=== PATIENT | male | born 1950 | race Caucasian/White ===

== ENCOUNTER → 2017-07-21 | Outpatient (CLI) | payer MEDICARE ==
[2016-03-12 15:00] VITALS: BP 129/55
[~2017-07-21] MED LIST: AMLO10TA2 PO; ASPI-482 PO; ATORVASTATIN CA80 MG PO; CARV12.52 PO; CHOL2000 PO; CYAN10005 PO; DOCU-109 PO; FISH1CAP PO; FURO40TA4 PO; GADOBUTROL 10 MMOL/10 ML VIAL IV ONE; HYDR25TA9 PO; Hydrocodone/Acetaminophen PO; LOSA100T6 PO; MELO7.5T29 PO; METH750T2 PO; METO25TA4 PO; OMEG300C PO; OMEG500C PO; OMEP20CA9 PO; OXYC1TAB7 PO; POTA99TA PO; SPIR25TA3 PO
--- NOTE | 2017-07-21 11:59 | RAD ---
MRI Cervical Spine with and without contrast History: Neck pain after seizure, history of fusion Technique: Multiplanar, multi sequential pre and postcontrast MR imaging was performed of the cervical spine. Contrast: 10 cc Gadavist Comparison: None Findings: There is some motion degradation. There is osseous interbody fusion at C5-6. There is anterior cervical fusion hardware C6-C7 at which there is incorporation of interbody graft and at least partial interbody fusion. There are also posterior lateral mass screws at C4, C5, and C6 attached to vertical rods. Exam does not accurately evaluate integrity of hardware. There is mild reversal of the lordotic curvature centered about C5. There is very minimal grade 1 anterior spondylolisthesis at C4-5. Cervical vertebral body stature is adequate. Cervical cord caliber is within normal limits without convincing focal signal abnormality allowing for motion artifact. There is mild disc desiccation such as C3-4 and C4-5 although the intervertebral disc spaces overall maintained at these levels. There is posterior annular tear C3-4. There is no significant abnormality of the cervical medullary junction. MRI can be insensitive for detection of noncompression type fractures if this is of clinical concern. There is likely mucus retention cyst of the right maxillary sinus up to 2 cm, small 1 cm focus on the left inferiorly with slightly complex features. C2-C3: There is fairly severe right facet degenerative change, to a lesser degree on the left. Spinal canal and neural foramina are adequate. C3-C4: There is severe facet degenerative change bilaterally. There is uncovertebral degenerative change greater on the right. There is very minimal disc osteophyte complex. There is buckling of the ligamentum flavum. Central canal is borderline 10 mm. There is fairly severe neural foramina compromise bilaterally. C4-C5: There is severe facet degenerative change. There has been posterior decompression. Spinal canal is adequate. There is minimal left uncovertebral degenerative change. There is fairly severe narrowing of the left neural foramen, probable moderate narrowing on the right. C5-C6: There has been posterior decompression. Spinal canal and neural foramina are adequate. C6-C7: Spinal canal and neural foramina are adequate. C7-T1: Neural foramina and spinal canal are adequate. Impression: 1. There is no significant cervical spinal stenosis. There is osseous interbody fusion at C5-C6, also anterior cervical fusion hardware C6-7 at which there is probable at least partial interbody fusion. There is also posterior fusion hardware C4-C6, posterior decompression at C4-5 and C5-6. 2. There is severe fairly severe neural foramina compromise bilaterally at C3-4, also left greater than right at C4-5. Facet hypertrophic change contributes to neural foramina compromise. Electronically signed by: Allen Winkler MD (07/21/2017 11:56 AM) [facility]
== END | disposition home or self-care (01) ==
LOC: MRI 09:39
PROVIDERS: ATTEND Neurological Surgery
DX: M54.12 Radiculopathy, cervical region (principal); M25.78 Osteophyte, vertebrae; R56.9 Unspecified convulsions; Z98.1 Arthrodesis status
CPT/HCPCS: 72156; A9585

== ENCOUNTER → 2018-10-06 | Outpatient (CLI) | payer MEDICARE ==
[2016-03-12 15:00] VITALS: BP 129/55
[~2018-10-06] MED LIST changes: +ALBU2.5V8 INH; +AMIO200T4 PO; -AMLO10TA2 PO; +AMLO10TA8 PO; +AMLO5TAB10 PO; +CARV12.511 PO; -CARV12.52 PO; +CRESTOR40 MG PO; +FURO20TA3 PO; -GADOBUTROL 10 MMOL/10 ML VIAL IV ONE; +HYDR-2145 PO; -HYDR25TA9 PO; +IBRU140C PO; +LOSA100T14 PO; -LOSA100T6 PO; +MULT1TAB52 PO; +OMEP20CA10 PO; -OMEP20CA9 PO; +PANT20TA2 PO; -SPIR25TA3 PO; +SPIR25TA5 PO; +TIOT18CA IH; +VALA1000 PO; +iron
--- NOTE | 2018-10-07 03:30 | PAIN ---
DATE OF SERVICE: 10/06/2018 INITIAL CONSULTATION FOR PAIN CLINIC CHIEF COMPLAINT: Low back and right lower extremity pain. HISTORY OF PRESENT ILLNESS: This is a 68-year-old male who presents with history of pain in the low back and right leg for many years status post multiple back surgeries with pain persistent. The patient has recently seen his neurosurgeon who is not recommending any further surgery. The patient has had instrumentation multiple times in the lumbar spine with fusion once with removal on one side secondary to infection and replacement of the hardware as well as interbody cages, still with significant pain in low back, right lower extremity, mostly in the posterior gluteus, posterior thigh, and posterior calf. The patient reports this has been going on now for about a year, most recently present for many years prior to this. The patient reports it is worse with walking, standing, change in positions, awakens him from sleep at night at least 3-4 times, does not affect his bowel or bladder control, but does affect his ability to walk fairly significantly. He is using a cane in his left hand, which he has with him today as well. The patient describes the pain as constant, aching, dull, shooting and radiating into the right leg with numbness, worse with activity, standing, walking, changing positions, again better with sitting for a temporary period, but after about 15-20 minutes, the pain begins to return, again awakens him from sleep with lying down. The patient did have recent MRI scan of the lumbar spine showing moderate lumbar spondylosis; paracentral focal disk herniation at T12-L1; mild right paracentral disk protrusion L1-L2; multilevel neural foraminal narrowing, most severe in the right L5-S1; postoperative changes in the spine similar to previous exam with disk space narrowing at L4-L5 with mild broad posterior annular disk bulging; L5-S1 showing degenerative changes, posterior annular disk bulging as well greater on the right than the left and severe right neural foraminal narrowing on the left. The patient rates the disability rating from 0-10, 10 being the worst, is a 6-7 with family and home responsibilities; 7-8 with recreation and occupation; 5-6 with social activity; 4-5 with sexual behavior, self-care and life support activities. The patient reports no overt loss of motor function, but significant fatigability of the lower extremities, especially on the right with any ambulation, standing and weightbearing. PAST MEDICAL HISTORY: Significant for shortness of breath, hypertension, arthritis, chronic leukemia. PREVIOUS SURGERY: Include left total knee replacement, right total knee replacement, lumbar surgeries multiple times with fusion and instrumentation in and out, 3 neck surgeries and fusion, sinus surgery, carpal tunnel repair on the right, shoulder rotator cuff repair on the left, knee scope x 2 and previous angioplasty. CURRENT MEDICATIONS: Include acyclovir, Spiriva, Crestor, Protonix, amlodipine, Lasix, ProAir inhaler, amiodarone, Imbruvica, iron, multivitamins, spironolactone, carvedilol, losartan, vitamin D and fish oil. ALLERGIES: THE PATIENT IS ALLERGIC TO PAPER TAPE. No medical allergies. No medicine allergies. FAMILY HISTORY: Significant for cancer, diabetes, coronary artery disease, hypertension. SOCIAL HISTORY: The patient is , does not smoke, does drink about 2 alcoholic drinks a day on average. Does not use any illegal, illicit or recreational drugs. Lives locally in [place], [place]. Reports that he is currently on disability secondary to his current pain issue. REVIEW OF SYSTEMS: The patient's review of systems is positive for those items mentioned in history of present illness. All systems reviewed and otherwise negative. It is complete, full and well documented on the patient's chart. PHYSICAL EXAMINATION: GENERAL: The patient's blood pressure is 146/66, pulse 81, and respirations 18, temperature is 97.7 degrees Fahrenheit, height is 6 feet 9 inches, weight is 258 pounds. GENERAL: The patient is awake, alert, oriented, appropriate, very pleasant demeanor. The patient is accompanied by his spouse. HEENT: Shows normocephalic, atraumatic. Extraocular movements are intact and symmetrical. Oral cavity: Mucous membranes moist and pink. Dentition is intact. The patient has full calzada and moustache. NECK: Shows anterior throat supple without palpable lymphadenopathy noted. Swallow reflex is symmetrical. CHEST: Shows normal on inspection. Breath sounds are clear to auscultation bilaterally. HEART: Shows S1, S2 clear. No murmurs auscultated. ABDOMEN: Soft, nontender, nondistended. No palpable organomegaly is noted. No rebound or guarding demonstrated. BACK: Shows spine grossly in the midline. Normal appearing thoracic kyphosis. Some significant flattening of lumbar lordotic curvature, has well-healed surgical scarring, which is fairly extensive in the lumbar distribution. Lumbar paraspinous muscle shows grossly symmetrical on inspection. With palpation shows some moderate tenderness bilaterally, but only diffusely as well without significant radiation. The patient shows limited rotational motion not secondary to pain, but about 10 degrees right and left as well as limited extension, but full forward flexion about 40 degrees without significant increase in pain. No tenderness over the sacrum or sacroiliac regions over the spinous processes. EXTREMITIES: The patient's lower extremities show deep tendon reflexes at 1+ in the patellar and tendo calcaneus tendons are equal. Motor exam is approximately 4 on a scale of 5, but symmetrical with dorsiflexion, extension, quadriceps and hamstring flexion. Peripheral pulses are 1+ posterior tibia. No peripheral edema is noted. The patient's straight leg raise is noted to be negative bilaterally as is Gaenslen's and Kwabena's maneuvers bilaterally. The patient is able to stand. It is difficult trying to stand on his toes as he does lose balance quickly. Walks with a significant antalgic gait, appears to favor significantly with the right lower extremity, again cane use in his right hand. SKIN: Shows warm and dry, good turgor. No edema. No sores, rashes or bruising. IMPRESSION: This is a 68-year-old male with: 1. Long history of low back pain, multiple surgeries, instrumentation, fusion, interbody fusion with persistent radiculopathy in the right lower extremity in L5-S1 dermatomal distribution. 2. Recent evaluation by Neurosurgery without any surgical indications. 3. Coronary artery disease. 4. Hypertension. 5. Arthritis. 6. Chronic leukemia. PLAN: Options were discussed with the patient including conservative medical management, physical therapy, interventional techniques. He would like to pursue more interventional techniques. We discussed a spinal cord stimulator with the patient as he may be a very good candidate for this as recommended by his neurosurgeon as well to consider as there are no surgical indications at this time. The patient would like to consider this. We discussed the procedure in detail as well as the stimulator in detail. The patient was given some information to do some research on his own as well, which he requested and we will make the arrangements to have psychological evaluation as well as preauthorization for spinal cord stimulator trial performed and potential permanent implantation if that is successful. The patient understands and agrees and would like to proceed with this. We will make the arrangements to have him return for spinal cord stimulator temporary lead placement at that time. KIA NEWMAN MD DR: PAMELA/layne JOB#: [id number] / [id number]
== END | disposition home or self-care (01) ==
LOC: PNCL 08:37
PROVIDERS: ATTEND Anesthesiology
DX: M54.17 Radiculopathy, lumbosacral region (principal); M79.604 Pain in right leg; M19.90 Unspecified osteoarthritis, unspecified site; I10 Essential (primary) hypertension; I25.10 Atherosclerotic heart disease of native coronary artery without angina pectoris; C95.10 Chronic leukemia of unspecified cell type not having achieved remission
CPT/HCPCS: G0463

== ENCOUNTER → 2018-10-28 | Outpatient (CLI) | payer MEDICARE ==
[2016-03-12 15:00] VITALS: BP 129/55
[~2018-10-28] MED LIST changes: +LIDOCAINE 1% PF 2 ML VIAL. ONE
--- NOTE | 2018-10-29 00:58 | PAIN ---
DATE OF SERVICE: 10/28/2018 DIAGNOSES: Lumbar radiculopathy with lumbar degenerative disk disease and post-lumbar laminectomy syndrome. HISTORY OF PRESENT ILLNESS: The patient is a 68-year-old male, who returns to followup after psychiatric evaluation and preauthorization for spinal cord stimulator temporary lead placement. The patient had procedure clearance and would like to proceed. The patient still have pain in low back into the right greater than left lower extremity, posterior gluteus, posterior thigh, posterior calf as well as across the low back bilaterally. The patient reports his pain is a 9 on a scale of 10 at its worst, 6 on average, 4 at its least and is a 6 today. The patient reports it is tingling, burning, sharp, shooting, radiating, becoming more constant, worse with standing, walking, changing positions and better with lying down or sitting. The patient reports he generally sleeps fairly well, does not awaken him from sleep most times, but reports no new motor or sensory deficits, no new bowel or bladder incontinence or other complaints. PHYSICAL EXAMINATION: VITAL SIGNS: The patient's blood pressure 167/77, pulse 53, respirations 16, temperature is 97.8 degrees Fahrenheit, height is 6 feet 1 inch, and weight is 260 pounds. GENERAL: The patient is awake, alert, oriented, appropriate, very pleasant demeanor. HEENT: Shows normocephalic, atraumatic. Extraocular movements are intact and symmetrical. Oral cavity: Mucous membranes are moist and pink. Dentition is intact. NECK: Shows anterior throat supple without palpable lymphadenopathy noted. Swallow reflex is symmetrical. CHEST: Shows normal on inspection. Breath sounds are clear to auscultation bilaterally. HEART: Shows S1 and S2 clear. No murmurs auscultated. ABDOMEN: Soft, nontender, nondistended. No palpable organomegaly is noted. No rebound or guarding demonstrated. MUSCULOSKELETAL: Back shows spine grossly in the midline. Slight exaggerated thoracic kyphosis, some significant flattening of lumbar lordotic curvature. Lumbar paraspinous muscle shows symmetrical on inspection. Well-healed extensive surgical scars are noted bilaterally throughout the upper, lower and middle distribution of paraspinous musculature. Muscles are diffusely tender bilaterally with palpation upper, middle and lower distribution of the paraspinous muscles in the lumbar distribution without radiation, without specific trigger points and is very firm, very moderately tender bilaterally. The patient has good rotational motion of lumbar spine, both laterally as well as extension and flexion with some limitation with extension secondary to his previous surgeries, not secondary to pain, as these are not uncomfortable with rotational motion or flexion and extension. EXTREMITIES: Lower extremities show deep tendon reflexes at 1+ in the patellar and tendo calcaneus tendons. Motor exam is strong with 5/5 dorsiflexion, extension, quadriceps and hamstring flexion and intact. Peripheral pulses are 1+ posterior tibia. No peripheral edema is noted. Options were discussed with the patient. The patient's old chart was reviewed as was his current medication regimen updated. Current review of systems is updated today as well. We will proceed with the spinal cord stimulator temporary leads x 2, placement today with fluoroscopic guidance. Risks were again discussed including, but not limited to bleeding, infection, possibility of epidural hematoma, subsequent neurological compromise, dural puncture, headaches, spinal cord and/or nerve damage, exposure to fluoroscopy as well as poor results regarding pain control. The patient understands and wished to proceed. The patient will return to the clinic in approximately 1 week for followup and removal of temporary leads at that time. We will evaluate the patient's pain level over the next week and evaluate for permanent stimulator placement if appropriate. DIAGNOSIS: Lumbar radiculopathy with lumbar degenerative disk disease, post-lumbar laminectomy syndrome. PROCEDURE: Bilateral spinal cord stimulator temporary lead placement x 2, under sterile prep and drape using local anesthetic under fluoroscopy both AP and lateral using 14-gauge Hustead styletted needles with preservative-free normal saline, loss of resistance technique with negative aspiration at each level with insertion site at T12-L1 intervertebral level with good ease and thread of the stimulator leads x 2 without significant resistance, with the superior lead of the right most posterior stimulator lead at the superior endplate of T8 and the left most at the superior endplate of T9 is confirmed with lateral fluoroscopy to be in the posterior epidural space. [place] were withdrawn, stylets withdrawn. The leads were sutured in place and a sterile bandage was applied. CONDITION AT DISCHARGE: Stable. The patient tolerated the procedure well, had no complications in the immediate postoperative period. Was educated with [facility] stimulator policy services representative for use of the stimulator itself and we will follow up over the next week intermittently as well. KIA NEWMAN MD DR: Dione JOB#: [id number] / [id number]
== END | disposition home or self-care (01) ==
LOC: PNCL 12:24
PROVIDERS: ATTEND Anesthesiology
DX: M51.16 Intervertebral disc disorders with radiculopathy, lumbar region (principal); M96.1 Postlaminectomy syndrome, not elsewhere classified; Z88.8 Allergy status to other drugs, medicaments and biological substances; Z91.048 Other nonmedicinal substance allergy status
CPT/HCPCS: 63650; C1897

== ENCOUNTER → 2018-11-04 | Outpatient (CLI) | payer MEDICARE ==
[2016-03-12 15:00] VITALS: BP 129/55
[~2018-11-04] MED LIST changes: -LIDOCAINE 1% PF 2 ML VIAL. ONE
--- NOTE | 2018-11-05 01:18 | PAIN ---
DATE OF SERVICE: 11/04/2018 DIAGNOSIS: Lumbar radiculopathy with lumbar degenerative disk disease and lumbar post-laminectomy syndrome. HISTORY OF PRESENT ILLNESS: The patient is a 68-year-old male who returns for followup status post spinal cord stimulator temporary lead placement x 2, one week ago. The patient returns today reporting about 70+ percent improvement in the pain with the second program that we tried with the stimulator. The patient reports he did very well, has been sleeping much better at night, increased his activity, greater distance walking, doing activities at home, traveling with greater ease and comfort and especially sleeping at night, has been a big change form as he is much more comfortable. The patient reports he is very pleased with the stimulator and the progress he has made. Reports his pain across the low back is still aching and dull, but only very minimal amount. The patient reports it is 4 on a scale of 10 at its worst over the past week, 2 on an average, 0 at its least and is 2 today. The patient reports no new motor or sensory deficits, no new changes. No new bowel or bladder incontinence. PHYSICAL EXAMINATION: VITAL SIGNS: The patient's blood pressure is 161/66, pulse 51, respirations are 18, temperature is 97.9 degrees Fahrenheit, height is 6 feet 1 inch, weighs 261 pounds. GENERAL: The patient is awake, alert, oriented, appropriate, very pleasant demeanor. HEENT: Head shows normocephalic, atraumatic. Extraocular movements are intact and symmetrical. Oral cavity: Mucous membranes moist and pink. NECK: Shows anterior throat supple. CHEST: Shows breath sounds clear to auscultation bilaterally. HEART: Shows S1, S2 clear. ABDOMEN: Soft, nontender, nondistended. BACK: Shows spine grossly in the midline. The patient's bandages were taken down and under sterile prep and drape, the spinal cord stimulator leads were removed. Sutures were cut. Stimulator leads were removed x 2 with tips intact. Site clean and dry, no erythema, no redness, no drainage, no tenderness with palpation. The patient has full rotational motion of lumbar spine without difficulty. EXTREMITIES: Lower extremities show deep tendon reflexes 1+ in the patellar and tendo calcaneus tendons. Motor exam is strong with 5/5 dorsiflexion, extension, quadriceps and hamstring flexion and symmetrical. Peripheral pulses are 1+ posterior tibial. No peripheral edema is noted bilaterally. Options were discussed with the patient. The patient's old chart was reviewed as was his current medication regimen updated. Current review of systems updated today as well. We will make arrangements for permanent stimulator placement. The patient will follow up on as scheduled basis at this time. KIA NEWMAN MD DR: PAMELA/layne JOB#: [id number] / [id number]
== END | disposition home or self-care (01) ==
LOC: PNCL 10:41
PROVIDERS: ATTEND Anesthesiology
DX: M51.16 Intervertebral disc disorders with radiculopathy, lumbar region (principal); M96.1 Postlaminectomy syndrome, not elsewhere classified
CPT/HCPCS: G0463

== ENCOUNTER → 2018-12-23 | Outpatient (CLI) | payer MEDICARE ==
[2016-03-12 15:00] VITALS: BP 129/55
--- NOTE | 2018-12-23 23:22 | PAIN ---
DATE OF SERVICE: 12/23/2018 PROGRESS NOTE FOR PAIN CLINIC DIAGNOSES: Lumbar radiculopathy with lumbar degenerative disk disease and lumbar post-laminectomy syndrome. HISTORY OF PRESENT ILLNESS: The patient is a 68-year-old male who returns for followup status post spinal cord stimulator placement and permanent implant on 12/03/2018. The patient reports he is doing very well, with some over-stimulation with the first program, but it has been reprogrammed today and he met today with our [employer] cash posting representative to do some re-tuning. The patient reports already it feels a little bit better than it did yesterday. Even the patient reports the pain in the low back and bilateral lower extremity was previously rated at 8 on a scale of 10 and that was the worst for the past week, 4 on average and a 4 at its least and it is a 4 today. The patient reports it is aching and dull in the back and legs. The patient reports no motor or sensory deficits, no new bowel or bladder incontinence or other complaints. It does not awaken him from sleep at night, doing better when he is off his feet. The patient reports no new motor or sensory deficits or other complaints. PHYSICAL EXAMINATION: VITAL SIGNS: The patient's blood pressure is 155/82, pulse 85, respirations 16 and temperature 97.8 degrees Fahrenheit. Weight is 260 pounds. GENERAL: The patient is awake, alert, oriented, appropriate, very pleasant demeanor. The patient is accompanied by his spouse. HEENT EXAMINATION: Shows normocephalic, atraumatic. Extraocular movements are intact and symmetrical. Oral cavity, his mucous membranes are moist and pink. Dentition is intact. NECK: Shows anterior throat supple. CHEST: Shows breath sounds clear to auscultation bilaterally. HEART: Shows S1, S2 clear. BACK: The patient's back shows spine grossly in the midline. Well-healing surgical scars are noted. There is easily palpable spinal cord stimulator generator to the left of midline, in the lumbar distribution. Again, well-healed surgical scars. No erythema, no drainage. No signs of infection and no specific tenderness over the areas of the incision. EXTREMITIES: The patient's lower extremities show deep tendon reflexes 1+ in the patellar and tendo calcaneus tendons are equal. Motor exam is strong with 5/5 dorsiflexion and extension and equal. Peripheral pulses are 1+ posterior tibial. No peripheral edema is noted bilaterally. Options were discussed with the patient. The patient's old chart was reviewed as was his current medication regimen updated. Current review of systems updated today as well and we will have him follow up at this time on as-needed basis. The patient was encouraged to be careful with stretching, strengthening and bending exercises with the low back and rotational motion of lumbar spine, especially flexion and extension for a total of 6 weeks have passed from the surgery date. The patient also was wearing a back brace that was putting some pressure on the generator and he will use is only intermittently as necessary in the future. The patient will follow up this time on an as-needed basis. KIA NEWMAN MD DR: PAMELA/nts JOB#: [id number] / [id number]
== END | disposition home or self-care (01) ==
LOC: PNCL 09:48
PROVIDERS: ATTEND Anesthesiology
DX: M51.16 Intervertebral disc disorders with radiculopathy, lumbar region (principal); M96.1 Postlaminectomy syndrome, not elsewhere classified
CPT/HCPCS: G0463

== ENCOUNTER → 2019-08-09 | Outpatient (CLI) | payer MEDICARE ==
[2016-03-12 15:00] VITALS: BP 129/55
[~2019-08-09] MED LIST changes: +ASPI81TA50 PO; +CYAN-25 PO; -CYAN10005 PO; +GABA300C18 PO; -OMEP20CA10 PO; +OMEP20CA16 PO
--- NOTE | 2019-08-09 12:50 | PAIN ---
DATE OF SERVICE: PROGRESS NOTE FOR PAIN CLINIC DIAGNOSES: Lumbar radiculopathy with lumbar degenerative disk disease and lumbar post-laminectomy syndrome. HISTORY OF PRESENT ILLNESS: The patient is a 69-year-old male who returns for followup status post spinal cord stimulator placement, permanent placement 12/03/2018. The patient reported about 95% improvement after trial and has had reprogramming done once since the implant. The patient returns today reporting still significant pain, increasing now in the low back and right lower extremity, posterior gluteus, posterior thigh across the low back. The patient rates it 9 on a scale of 10 at its worst in the past week, 4 on average, 4 at its least and is a 4 today. The patient reports is tingling, sharp, aching and dull and is meeting with his spinal cord stimulator medical office representative from [employer] later this morning as well. The patient reports sometimes it comes and goes, but for about a month now is beginning more noticeable and would like to have it reprogrammed. The patient reports it is sharp and tingling in the low back. The patient reports no new motor or sensory deficits, no new bowel or bladder incontinence or other complaints. It does not awake him from sleep at night, mostly noticeable with walking, standing, better with sitting or lying down. The patient reports while he is sitting here today his pain is basically 0. PHYSICAL EXAMINATION: VITAL SIGNS: The patient's blood pressure 149/76, pulse 60, respirations 18, temperature 97.6 degrees Fahrenheit, height is 6 feet 1 inch, weight is 263 pounds. GENERAL: The patient is awake, alert, oriented, appropriate, very pleasant demeanor. HEENT: Head is normocephalic, atraumatic. Extraocular movements are intact and symmetrical. Oral cavity: Mucous membranes moist and pink. Dentition is intact. NECK: Shows anterior throat supple without palpable lymphadenopathy noted. Swallow reflex symmetrical. CHEST: Shows normal on inspection. Breath sounds clear to auscultation bilaterally. HEART: Shows S1, S2 clear. No murmurs auscultated. ABDOMEN: Soft, nontender, nondistended. No palpable organomegaly is noted. No rebound or guarding demonstrated. BACK: Shows spine grossly in the midline. Normal appearing thoracic kyphosis and minor flattening of lumbar lordotic curvature with well-healed surgical scarring noted. Lumbar paraspinous muscle shows symmetrical on inspection, with palpation shows only very mild tenderness throughout the upper, middle and lower distribution of the paraspinous muscles. EXTREMITIES: Lower extremities show deep tendon reflexes 1+ in the patellar and tendo calcaneus tendons. Motor exam is 5/5 with dorsiflexion, extension, quadriceps and hamstring flexion and symmetrical. Options were discussed with the patient. The patient's old chart was reviewed as his current medication regimen updated. Current review of systems updated today as well. We will have the reprogramming performed this morning with a spinal cord stimulator medical office representative and once this is completed, the patient returns on as needed basis at this time. KIA NEWMAN MD DR: PAMELA/layne JOB#: [id number] / [id number]
== END | disposition home or self-care (01) ==
LOC: PNCL 08:57
PROVIDERS: ATTEND Anesthesiology
DX: M51.16 Intervertebral disc disorders with radiculopathy, lumbar region (principal); M96.1 Postlaminectomy syndrome, not elsewhere classified
CPT/HCPCS: G0463

== ENCOUNTER → 2019-12-21 | Outpatient (CLI) | payer MEDICARE ==
[2016-03-12 15:00] VITALS: BP 129/55
[~2019-12-21] MED LIST changes: -VALA1000 PO; +VALA10008 PO
--- NOTE | 2019-12-21 14:00 | PAIN ---
DATE OF SERVICE: 12/21/2019 PROGRESS NOTE FOR PAIN CLINIC DIAGNOSES: Lumbar radiculopathy with lumbar degenerative disk disease and lumbar post-laminectomy syndrome. HISTORY OF PRESENT ILLNESS: The patient is a 69-year-old male who returns for followup status post spinal cord stimulator implant at about 1 year ago, on 12/03/2018. The patient reports he did very well until the last few months, the pain has been returning about 3 months now in the low back and right lower extremity but very only very gradually and now is becoming much more noticeable over the past 3-4 weeks. The patient reports his pain is 8-9 on a scale of 10 at its worst, 7-8 on average and 4-5 at its least. The patient reports it is tingling and sharp, began to notice it more in the right leg, posterior gluteus and thigh as it was prior to his surgeries and prior to his spinal cord stimulator placement. The patient has been keeping the stimulator charged without difficulty and our [employer] representative is here today to check it as well. The patient reports otherwise doing fairly well. No new bowel or bladder incontinence, no new motor or sensory deficits, just some pain reported with low back and the right leg, awakening him from sleep about every 6 hours but most nights it does not. The patient reports it is worse with walking, standing, exercise activity or getting up from a seated position, putting all his weight on his right leg. PHYSICAL EXAMINATION: VITAL SIGNS: The patient's blood pressure 172/67, pulse 51, respirations 18, temperature 98.1 degrees Fahrenheit, height 6 feet 1 inch, weight is 258 pounds. GENERAL: The patient is awake, alert, oriented, appropriate, very pleasant demeanor. HEENT: Shows normocephalic, atraumatic. Extraocular movements are intact and symmetrical. Oral cavity: Mucous membranes moist and pink. The patient has full calzada and moustache. NECK: Shows anterior throat supple without palpable lymphadenopathy noted. Swallow reflex symmetrical. CHEST: Shows normal on inspection. Breath sounds are clear without rales, rhonchi or wheezes bilaterally. HEART: Shows S1, S2 clear. No murmurs auscultated. ABDOMEN: Soft, nontender, nondistended. BACK: Shows spine grossly in the midline, slight flattening of lumbar lordotic curvature with well-healed surgical scarring noted as well as easily palpable spinal cord stimulator generator on the left to midline in the mid back as well with well-healed surgical scar and nontender with palpation. EXTREMITIES: Lower extremities show deep tendon reflexes 1+ in the patellar and tendo calcaneus tendons. Motor exam is 5/5 with dorsiflexion, extension, quadriceps and hamstring flexion and symmetrical. Options were discussed with the patient. The patient's old chart was reviewed as his current medication regimen updated. Current review of systems updated today as well and we will have him reprogrammed today with our [facility] [employer] representative. Also, we will follow up within 1 week with progress report after the program changes are made today as well. Otherwise, follow up as necessary. KIA NEWMAN MD DR: PAMELA/nts JOB#: [id number] / [id number]
== END | disposition home or self-care (01) ==
LOC: PNCL 12:50
PROVIDERS: ATTEND Anesthesiology
DX: M51.16 Intervertebral disc disorders with radiculopathy, lumbar region (principal); M96.1 Postlaminectomy syndrome, not elsewhere classified
CPT/HCPCS: G0463

== ENCOUNTER → 2020-01-27 | Outpatient (CLI) | payer MEDICARE ==
[2016-03-12 15:00] VITALS: BP 129/55
[~2020-01-27] MED LIST changes: +MULT-445 PO; -MULT1TAB52 PO
--- NOTE | 2020-01-27 12:31 | PAIN ---
DATE OF SERVICE: 01/27/2020 PROGRESS NOTE FOR PAIN CLINIC DIAGNOSES: Lumbar radiculopathy with lumbar degenerative disk disease and lumbar post-laminectomy syndrome. HISTORY OF PRESENT ILLNESS: The patient is a 69-year-old male who returns for followup status post spinal cord stimulator placement, which was 12/03/2018. The patient reported about 95% improvement with his trial and has been doing very well until the last few weeks. The pain has been returning and with weakness in the right leg compared to the left with increased pain. The patient has a stimulator reprogrammed once, which helped, but not with the weakness. The patient reports it is becoming more painful now, rated as a 9 on a scale of 10 at its worst in the past week, 7 on average, 5 at its least and is a 9 today. The patient reports it is aching, sharp, tingling, right leg, posterior gluteus, posterior thigh and across the low back as well. The patient has been charging the stimulator without difficulty and has had no problems with the mechanisms itself, but the pain is increasing with some weakness in the right leg. We discussed this with his spouse as well as with our [facility] spinal cord stimulator hospital insurance representative. We will have the stimulation held for just under 1 week to see if this will make any difference in the perception of the pain or the weakness of the right leg. If not significantly improved or getting worse, we will order MRI scan of the lumbar spine to assess for any type of compression that may cause the weakness in the pain. Otherwise, the patient reports he has been doing fairly well, still awakens him from sleep at night about every 5 hours. No new motor or sensory deficits, no bowel or bladder incontinence or other complaints. PHYSICAL EXAMINATION: VITAL SIGNS: The patient's blood pressure 157/63, pulse 55, respirations 18, temperature 98.2 degrees Fahrenheit, height 6 feet 1 inch, weight is 261 pounds. GENERAL: The patient is awake, alert, oriented, appropriate, very pleasant demeanor. HEENT: Head shows normocephalic, atraumatic. Extraocular movements are intact and symmetrical. Oral cavity: Mucous membranes moist and pink. Dentition is intact. NECK: Shows anterior throat supple without palpable lymphadenopathy noted. Swallow reflex symmetrical. CHEST: Shows normal on inspection. Breath sounds are clear bilaterally. HEART: Shows S1, S2 clear. ABDOMEN: Soft, nontender, nondistended. BACK: Shows spine grossly in the midline with some flattening of lumbar lordotic curvature. Well-healed surgical scar is noted in the lumbar distribution as well as easily palpable spinal cord stimulator generator in the left paramedian distribution of the lower lumbar distribution, which is nontender again with well-healed surgical scars over the stimulator generator as well. The patient has good rotational motion of lumbar spine, both laterally as well as extension and flexion without difficulty. EXTREMITIES: Lower extremities show deep tendon reflexes at 1+ in the patellar and tendo calcaneus tendons. Motor exam is strong with 5/5 dorsiflexion, extension on the left and 4/5 on the right with dorsiflexion, extension, quadriceps and hamstring flexion about 3 on a scale of 5 on the right secondary to pain, 5/5 on the left. Peripheral pulses are 1+. No peripheral edema is noted. PLAN: Options were discussed with the patient. The patient's old chart was reviewed as his current medication regimen updated. Current review of systems updated today as well. We will hold the patient's stimulation for approximately 1 week. Again if the patient's pain is worsening or increased weakness in the right leg, he will notify the office prior to 1 week and we will [facility] and go from there. The patient understands and agrees and will follow up as scheduled. KIA NEWMAN MD DR: PAMELA/layne JOB#: [id number] / [id number]
== END | disposition home or self-care (01) ==
LOC: PNCL 11:04
PROVIDERS: ATTEND Anesthesiology
DX: M51.16 Intervertebral disc disorders with radiculopathy, lumbar region (principal); M96.1 Postlaminectomy syndrome, not elsewhere classified; Z79.82 Long term (current) use of aspirin; Z79.899 Other long term (current) drug therapy; Z88.8 Allergy status to other drugs, medicaments and biological substances; Z87.891 Personal history of nicotine dependence
CPT/HCPCS: G0463

== ENCOUNTER → 2020-02-29 | Outpatient (CLI) | payer MEDICARE ==
[2016-03-12 15:00] VITALS: BP 129/55
--- NOTE | 2020-02-29 18:34 | PAIN ---
DATE OF SERVICE: 02/29/2020 PROGRESS NOTE FOR PAIN CLINIC DIAGNOSES: Lumbar radiculopathy with lumbar degenerative disk disease and lumbar post-laminectomy syndrome. HISTORY OF PRESENT ILLNESS: The patient is a 69-year-old male who returns for followup status post recent evaluation and spinal cord stimulator readjustment last month. We had turned it off for about a week. The patient reports that he could not tell a whole lot of difference and now with the stimulator is turned back on. It is actually causing some decreased pain in his low back and his right leg; however, he is having significant pain in the right leg with ambulation, walking, standing, especially getting up from a seated position. When he seated, he says he feels pretty good. It does not awaken him from sleep at night, better with lying down or sleeping. The patient reports that when he is walking, now the pain is becoming more significant radiating into the posterior gluteus, posterior thigh on the right side. The patient reports it is a 9 on a scale of 10 at its worst, 5 on average and 4 at its least and is a 5 today. The patient reports it is aching and sharp, tingling, burning in the right leg, again worse with walking activity. The patient reports no new changes, no bowel or bladder incontinence. PHYSICAL EXAMINATION: VITAL SIGNS: The patient's blood pressure 159/74, pulse 54, respirations 20, temperature is 98.0 degrees Fahrenheit and weight is 257 pounds. GENERAL: The patient is awake, alert, oriented, appropriate, very pleasant demeanor. HEENT: Head shows normocephalic, atraumatic. Extraocular movements are intact and symmetrical. The patient shows full calzada and moustache. Oral cavity: Mucous membranes moist and pink. Dentition is intact. NECK: Shows anterior throat supple without palpable lymphadenopathy noted. Swallow reflex symmetrical. CHEST: Shows normal on inspection. Breath sounds are clear without rales, rhonchi or wheezes auscultated. HEART: Shows S1, S2 clear. No murmurs auscultated. ABDOMEN: Soft, nontender, nondistended. BACK: Shows spine grossly in the midline. Slight exaggeration of thoracic kyphosis, some flattening of lumbar lordotic curvature with well-healed surgical scar noted. Easily palpable spinal cord stimulator generator is noted as well just left of the midline in the lumbar paraspinous musculature. The patient shows good rotational motion of lumbar spine, both laterally as well as extension and flexion without significant difficulty or increased pain reported. EXTREMITIES: The patient's lower extremities show deep tendon reflexes at 1+ in the patellar and tendo-calcaneus tendons. Motor exam is 5/5 on the left and 4/5 on the right with dorsiflexion, extension, quadriceps and hamstring flexion is 3/5 on the right and 5/5 on the left. Peripheral pulses are 1+ posterior tibia. No peripheral edema is noted. PLAN: Options were discussed with the patient. The patient's old chart was reviewed as his current medication regimen updated. Current review of systems updated today as well. We [facility] as he has therapist to evaluate the right-sided lumbar radiculopathy. The patient ____ with his primary care physician in 2 days and we will request that this be [facility] to assess the radiculopathy, but he is experiencing which is overriding the capability of the stimulator at this time to evaluate possible increased change or disk herniation, etc. in the low back and effecting the right lower extremity. In the meantime, the patient's spinal cord stimulator was adjusted today with [employer] merchand[employer] representative and different programs available. The patient will try this as well. In the meantime, we will wait for MRI scan results and proceed at that point. KIA NEWMAN MD DR: PAMELA/layne JOB#: [id number] / [id number]
== END | disposition home or self-care (01) ==
LOC: PNCL 13:47
PROVIDERS: ATTEND Anesthesiology
DX: M51.16 Intervertebral disc disorders with radiculopathy, lumbar region (principal); M96.1 Postlaminectomy syndrome, not elsewhere classified; Z88.8 Allergy status to other drugs, medicaments and biological substances; Z79.899 Other long term (current) drug therapy
CPT/HCPCS: G0463

== ENCOUNTER → 2020-05-02 | Outpatient (CLI) | payer MEDICARE ==
[2016-03-12 15:00] VITALS: BP 129/55
--- NOTE | 2020-05-02 10:55 | PDOC ---
Progress Note - Pain Clinic Date of Service: DOS: DATE: 05/02/20 TIME: 10:50 Diagnosis: Dx: Lumbar radiculopathy with lumbar degenerative disc disease lumbar postlaminectomy syndrome History or Present Illness: HPI: 6-year-old male returns follow-up status post spinal cord stimulator placement and CT scan ordered for increased pain low back and right lower extremity February 29, 2020. Patient reports has been in the [place] hospital with some respiratory issues and was hospitalized for 16 days now discharged feeling better and the pain in his low back is actually improved as well as the radiation of the right lower extremity patient reports he has some pain in the right and left lower extremities now but is much more manageable patient rates is 8 on scale 10 is worse over the past week 6 on average 3 at its least is a 3 today patient ports aching sharp tingling shooting in the posterior gluteus posterior thigh more on the right than the left with activity but again is been at bedrest in the hospital recently and is been feeling much better after that. Patient does have spinal cord stimulator has not had it adjusted since he was hospitalized. Patient reports no loss of motor function no new bowel or bladder incontinence or other complaints we did have a CT scan performed which was done through the [place] showing multilevel neuroforaminal narrowing most severe at L5-S1 moderate on the left and severe on the right. Physical Exam: VS: Blood pressure 146/88 pulse 62 respiration 16 temperature 98.1 F weight is 236 pounds PE: PHYSICAL EXAMINATION: GENERAL: The patient is awake, alert, oriented, appropriate, very pleasant demeanor HEENT: Shows normocephalic, atraumatic. Extraocular movements are intact and symmetrical. Oral cavity: Mucous membranes moist and pink. Dentition is intact. NECK: Shows anterior throat supple without palpable lymphadenopathy noted. S wallow reflex symmetrical. CHEST: Shows normal on inspection. Breath sounds are clear bilaterally, distant but no rales rhonchi or wheezes auscultated. HEART: Shows S1, S2 clear. No murmurs auscultated. ABDOMEN: Soft, nontender, nondistended, obese. No palpable organomegaly is noted. No rebound or guarding demonstrated. BACK: Shows spine grossly in the midline. Normal-appearing cervical lordotic curvature. Easily palpable spinal cord stimulator generator noted with well- healed surgical scar. There is slightly increased thoracic kyphosis, some minor flattening of the lumbar lordotic curvature, with well-healed surgical scarring noted. Lumbar paraspinous muscles show symmetrical on inspection, on palpation shows some moderate tenderness diffusely throughout the upper, middle and lower distribution of the paraspinous muscles bilaterally, but without specific trigger points, without radiation of pain. The patient has good rotational motion of the lumbar spine, both laterally as well as extension and flexion without significant difficulty. No tenderness over the spinous processes, sacrum or sacroiliac regions. EXTREMITIES: Lower extremities show deep tendon reflexes 1+ in the patellar and tendo calcaneus tendons. Motor exam is 4 on a scale of 5 with right dorsiflexion, extension, quadriceps and hamstring flexion and 5/5 on the left. Peripheral pulses are 1+ posterior tibial. No peripheral edema is noted bilaterally. Lower extremities are warm and dry to touch, equal in color and appearance. SKIN: Shows warm and dry, good turgor. No edema. No sores, rashes or bruising throughout. Procedure: Procedure: Options were discussed with the patient. Patient will chart was reviewed his his current medication regimen updated current review of systems updated today as well. We will contact spinal cord stimulator customer support representative for readjustment of the stimulator system at this time. We did discuss possibility of lumbar epidural steroid injection however patient is against this as he is not had good success with these in the past. Medication Injected: Med Injected: None Condition at Discharge: Condition at Discharge: Condition at discharge is stable, patient will [facility] with [facility] customer support representative for adjustment of spinal cord stimulator system. KIA NEWMAN MD May 02, 2020 10:55
== END | disposition home or self-care (01) ==
LOC: PNCL 09:58
PROVIDERS: ATTEND Anesthesiology
DX: M51.16 Intervertebral disc disorders with radiculopathy, lumbar region (principal); M46.1 Sacroiliitis, not elsewhere classified; Z98.890 Other specified postprocedural states; Z79.899 Other long term (current) drug therapy; Z87.891 Personal history of nicotine dependence; Z79.82 Long term (current) use of aspirin; Z88.8 Allergy status to other drugs, medicaments and biological substances
CPT/HCPCS: G0463

== ENCOUNTER → 2020-07-13 | Outpatient (CLI) | payer MEDICARE ==
[2016-03-12 15:00] VITALS: BP 129/55
[~2020-07-13] MED LIST changes: -AMIO200T4 PO; +AMIO200T6 PO; +AMLO-186 PO; +AMLO-187 PO; -AMLO10TA8 PO; -AMLO5TAB10 PO
--- NOTE | 2020-07-13 12:04 | PDOC ---
Progress Note - Pain Clinic Date of Service: DOS: DATE: 07/13/20 TIME: 12:00 Diagnosis: Dx: Lumbar radiculopathy with lumbar degenerative disc disease lumbar postlaminectomy syndrome with spinal cord stimulation History or Present Illness: HPI: 6-year-old male returns follow-up status post spinal cord stimulator placement and presents for reprogramming today. Patient ports pain is increasing in his low back and into his right lower extremity posterior gluteus posterior thigh and calf and across the low back. Patient reports the stimulator has been working but now is not as effective as it had been. Patient rates his pain as a 9 on scale 10 is worse with the past week 6-7 on average and affords least is a 6 today. Reports no new motor or sensory deficits no new bowel or bladder incontinence but still significant pain increasing where none the stimulation has been covering it very well. Patient reports no new motor or sensory deficits no new bowel or bladder incontinence or other complaints. Patient reports it wakes him from sleep about every 4-6 hours on average especially when he is getting up out of bed in the morning is more noticeable in the low back and the right leg also some tingling and paresthesia pain in the left forefoot anteriorly. Physical Exam: VS: Blood pressure is 172/83 pulse 68 respirations 18 temperature 90.6 3 Fahrenheit height is 6 foot 1 inches weight is 242 pounds PE: PHYSICAL EXAMINATION: GENERAL: The patient is awake, alert, oriented, appropriate, very pleasant demeanor HEENT: Shows normocephalic, atraumatic. Extraocular movements are intact and symmetrical. NECK: Shows anterior throat supple without palpable lymphadenopathy noted. Swallow reflex symmetrical. CHEST: Shows normal on inspection. Breath sounds are clear bilaterally no rales or rhonchi. HEART: Shows S1, S2 clear. No murmurs auscultated. ABDOMEN: Soft, nontender, nondistended, obese. No palpable organomegaly is noted. No rebound or guarding demonstrated. BACK: Shows spine grossly in the midline. Normal-appearing cervical lordotic curvature. There is increased thoracic kyphosis, some flattening of the lumbar lordotic curvature. Lumbar paraspinous muscles show symmetrical on inspection, on palpation shows some moderate tenderness diffusely throughout the upper, middle and lower distribution of the paraspinous muscles, but without specific trigger points, without radiation of pain. The patient has good rotational motion of the lumbar spine, both laterally as well as extension and flexion without significant difficulty. No tenderness over the spinous processes, sacrum or sacroiliac regions. EXTREMITIES: Lower extremities show deep tendon reflexes 1+ in the patellar and tendo calcaneus tendons. Motor exam is 4 on a scale of 5 with right dorsiflexion, extension, quadriceps and hamstring flexion and 5/5 on the left. Peripheral pulses are 1+ posterior tibial. No peripheral edema is noted bilaterally. Lower extremities are warm and dry to touch, equal in color and appearance. SKIN: Shows warm and dry, good turgor. No edema. No sores, rashes or bruising throughout. Procedure: Procedure: Options were discussed with the patient. Patient will chart reviews his current medication regimen updated current review of systems updated today as well. We will go ahead with reprogramming with patient spinal cord stimulator today as [employer] sales representative is present patient will be given new programming and follow-up in approximately 4 weeks or sooner if necessary. Medication Injected: Med Injected: None Condition at Discharge: Condition at Discharge: Condition at discharge is stable. KIA NEWMAN MD Jul 13, 2020 12:04
== END | disposition home or self-care (01) ==
LOC: PNCL 10:59
PROVIDERS: ATTEND Anesthesiology
DX: M51.16 Intervertebral disc disorders with radiculopathy, lumbar region (principal); M96.1 Postlaminectomy syndrome, not elsewhere classified; I10 Essential (primary) hypertension; E78.00 Pure hypercholesterolemia, unspecified; M19.90 Unspecified osteoarthritis, unspecified site; E66.9 Obesity, unspecified; Z79.899 Other long term (current) drug therapy; Z98.890 Other specified postprocedural states; Z82.49 Family history of ischemic heart disease and other diseases of the circulatory system; Z83.3 Family history of diabetes mellitus; Z80.0 Family history of malignant neoplasm of digestive organs; Z87.891 Personal history of nicotine dependence; Z72.89 Other problems related to lifestyle; Z88.8 Allergy status to other drugs, medicaments and biological substances
CPT/HCPCS: G0463

== ENCOUNTER → 2020-08-21 | Outpatient (CLI) | payer MEDICARE ==
[2016-03-12 15:00] VITALS: BP 129/55
--- NOTE | 2020-08-21 11:29 | PDOC ---
Progress Note - Pain Clinic Date of Service: DOS: DATE: 08/21/20 TIME: 11:25 Diagnosis: Dx: Lumbar radiculopathy with lumbar degenerative disease and lumbar postlaminectomy syndrome History or Present Illness: HPI: 70-year-old male returns for follow-up status post spinal cord stimulator implant and presents for retuning of the stimulator as well as complaints of low back and increasing left lower extremity pain. Patient reports that the spinal cord stimulator is affecting the left leg where his original pain was always on the right side. Patient reports it feels numb and tingling in the left leg and while he has no motor loss it does feel different when the stimulator is on when he is off the leg feels more normal to him. Patient reports pain is 6-7 on scale 10 at its worst 2-4 and average 2-4 its least and is a 6 today patient ports that sharp tingling burning again worse in the left leg than the right and the right leg was controlled fairly well with the stimulator initially but the pain is returning now. Patient has had the programming reset several times since the implant but is still having some significant discomfort in the back and lower extremities. Patient reports has had the stimulator turned off now for the past 1-1/2 weeks. Patient reports no new motor or sensory deficits no new bowel or bladder incontinence or other complaints.Monisha wen is here today to reprogram the patient's stimulator as well. Physical Exam: VS: Blood pressures 151/68 pulse 57 respirations 18 temperature 97.7 F height is 6 1 his weight is 245 pounds PE: PHYSICAL EXAMINATION: GENERAL: The patient is awake, alert, oriented, appropriate, very pleasant demeanor HEENT: Shows normocephalic, atraumatic. Extraocular movements are intact and symmetrical. Full calzada and mustache NECK: Shows anterior throat supple without palpable lymphadenopathy noted. Swallow reflex symmetrical. CHEST: Shows normal on inspection. Breath sounds are clear bilaterally. HEART: Shows S1, S2 clear. No murmurs auscultated. ABDOMEN: Soft, nontender, nondistended, obese. No palpable organomegaly is noted. BACK: Shows spine grossly in the midline. Normal-appearing cervical lordotic curvature. There is slightly increased thoracic kyphosis, some minor flattening of the lumbar lordotic curvature. Well-healed midline surgical scarring is again noted. Lumbar paraspinous muscles show symmetrical on inspection, on palpation shows some moderate tenderness diffusely throughout the upper, middle and lower distribution of the paraspinous muscles bilaterally, but without specific trigger points, without radiation of pain. The patient has good rotational motion of the lumbar spine, both laterally as well as extension and flexion without significant difficulty. No tenderness over the spinous processes, sacrum or sacroiliac regions. EXTREMITIES: Lower extremities show deep tendon reflexes 2+ in the patellar and tendo calcaneus tendons. Motor exam is 4 on a scale of 5 with right dorsiflexion, extension, quadriceps and hamstring flexion and 5/5 on the left. Peripheral pulses are 1+ posterior tibial. No peripheral edema is noted bilaterally. Lower extremities are warm and dry to touch, equal in color and appearance. SKIN: Shows warm and dry, good turgor. No edema. No sores, rashes or bruising throughout. Procedure: Procedure: Options discussed with the patient. Patient chart reviewed his his current medication regimen updated current review of systems updated today as well. We will have reprogramming performed today as planned also will check under fluoroscopy for lead placement this was done and shows the right most lead to be inferior to its original placement by approximately 3 to 5 cm but remains posterior in the epidural space and midline. Programming will be carried out today with new settings and will reassess as scheduled. Medication Injected: Med Injected: None Condition at Discharge: Condition at Discharge: Condition at discharge is stable. KIA NEWMAN MD Aug 21, 2020 11:29
== END | disposition home or self-care (01) ==
LOC: PNCL 09:07
PROVIDERS: ATTEND Anesthesiology
DX: M51.16 Intervertebral disc disorders with radiculopathy, lumbar region (principal); M96.1 Postlaminectomy syndrome, not elsewhere classified; E78.00 Pure hypercholesterolemia, unspecified; I10 Essential (primary) hypertension; K21.9 Gastro-esophageal reflux disease without esophagitis; E66.9 Obesity, unspecified; M19.90 Unspecified osteoarthritis, unspecified site; Z87.891 Personal history of nicotine dependence; Z79.82 Long term (current) use of aspirin; Z79.899 Other long term (current) drug therapy; Z98.890 Other specified postprocedural states; Z88.8 Allergy status to other drugs, medicaments and biological substances; Z82.49 Family history of ischemic heart disease and other diseases of the circulatory system; Z83.3 Family history of diabetes mellitus; Z80.0 Family history of malignant neoplasm of digestive organs
CPT/HCPCS: 77002; G0463

== ENCOUNTER → 2020-11-19 | Outpatient (CLI) | payer MEDICARE ==
[~2020-11-19] MED LIST changes: +CONTRAST GIVEN. MC PRN; +IOHEXOL 180 MG/ML 10 ML VIAL. IT ONE; +LIDOCAINE 1% Multi-Dose 20 ML VIAL. INJ ONE; +METH-562 PO; -METH750T2 PO
[2020-11-19 10:10] VITALS: BP 127/56
--- NOTE | 2020-11-19 11:10 | NUR ---
Pt to [facility] for post myelogram recovery. VSS, pt able to tolerate PO. Pt dressed self and escorted out per wheelchair. Disk of procedure provided, DC instructions reviewed and pt v/u. JUDITH RN
--- NOTE | 2020-11-19 11:55 | RAD ---
EXAM: Fluoroscopic guided lumbar puncture for CT myelography; lumbar spine CT myelogram. HISTORY: Lower back pain and bilateral lower extremity pain and numbness. TECHNIQUE: The risks of the procedure discussed with the patient and written and verbal consent was o btained. A timeout was performed. Fluoroscopic imaging of the lumbar spine was performed and a site o verlying L2-L3 was selected for needle entry. The skin in this location was sterilely prepped, draped and infiltrated with 1 percent lidocaine. A spinal needle was advanced into the intrathecal space an d 18 cc Omnipaque 180 intrathecal contrast was injected. The needle was removed and a sterile measure s placed. The patient was transferred to the CT suite in stable condition. The patient was monitored one hour following the exam and discharged in stable condition. 11 fluoroscopic images were obtained for total cross be time of 2 minutes. *One or more of the following individualized dose reduction techniques were utilized for this examina tion: 1. Automated exposure control. 2. Adjustment of the mA and/or kV according to patient size. 3. Use of iterative reconstruction technique. COMPARISON: None. FINDINGS: There is left posterior instrumented fusion at L5-S1. There are transpedicular screws bridg ed by a left vertical edwin in expected position. There is no lucency surrounding the instrumentation t o suggest loosening. There are track hackett due to prior instrumentation within the right aspects of L 5 and S1. There is a disc space fusion device at this level. There are discectomy and laminotomy changes with noninstrumented fusion and bony bridging at L3-S1. T here is 2 mm anterolisthesis of L5 on S1. There is a chronic mild right superior endplate compression 40 with Schmorl's node at L3. There is mild levoscoliosis centered at L2. There is multilevel endplate remodeling with osteophytosi s and Schmorl's node formation. There is vacuum phenomenon within the lower thoracic and upper lumbar disc spaces. There is a suspected hemangioma or focal demineralization within the anterior aspect of T11. No suspicious lesion is seen. There is no fracture. There is a spinal stimulator generator with in the left flank with leads entering the dorsal aspect of the central canal at T11-T12 and extending cephalad beyond the [id number]. There is calcified atherosclerotic plaque involving the aorta, iliac bifurcation and aortic branch ve ssels. Evaluation for stenosis is limited in the absence of contrast. There are multiple prominent re troperitoneal lymph nodes which are likely reactive or physiologic. There is bladder wall thickening which may be due to chronic outlet obstruction given the presence of an enlarged prostate, partially included on the [id number]. There is a defect within the left iliac bones due to bone graft harves t site. There is degenerative subchondral sclerosis and spurring with vacuum phenomenon involving the right g reater than left sacroiliac joints. The conus terminates at T12-L1. There is no abnormal motion between flexion and extension. At T10-T11, there is a shallow posterior central disc protrusion superimposed on a disc bulge and end plate remodeling. There is mild bilateral facet arthropathy. There is moderate to severe right and se catina left foraminal stenosis. There is effacement of the ventral thecal sac without significant centr al canal stenosis. At T11-T12, there is mild bilateral facet arthropathy. There is mild bilateral foraminal stenosis. At T12-L1, there is a right lateral recess to foraminal disc protrusion superimposed on a disc bulge and endplate remodeling. There is mild bilateral facet arthropathy. There is prominent dorsal epidura l fat. There is moderate bilateral foraminal stenosis. There is minimal central canal stenosis. There is effacement of the right lateral recess and deviation of the traversing right nerve roots. At L1-L2, there is a right lateral recess to extra foraminal disc protrusion and osteophyte complex s uperimposed on a disc bulge and endplate osteophytosis. There is moderate bilateral facet arthropathy . There are partial laminectomy changes. There is severe right and moderate left foraminal stenosis. There is mild central canal stenosis. There is effacement of the right lateral recess and deviation o f the traversing right nerve roots. At L2-L3, there is laminectomy decompression and noninstrumented fusion. There is no stenosis. At L3-L4, there are discectomy and laminotomy changes with noninstrumented fusion. There is mild left foraminal stenosis. At L4-L5, there is a disc bulge and endplate osteophytosis. There is noninstrumented fusion with lami nectomy decompression. There is mild bilateral foraminal stenosis. At L5-S1, there is a large right lateral recess to extra foraminal osteophyte complex superimposed on a disc bulge and endplate remodeling. There is severe right facet arthropathy. There is left posteri or fusion instrumentation and laminectomy decompression. There is a disc space fusion device which ex tends to the right posterior lateral disc margin. There is severe bilateral foraminal stenosis. There is effacement of the right lateral recess. IMPRESSION: 1. L5-S1: Left posterior instrumented fusion. There is no evidence of instrumentation loosening. Ther e has been explantation of prior right posterior fusion instrumentation at this level. There is a dis c space fusion device extending to the right posterior lateral disc margin. The combination of postop erative changes and a large right lateral recess to extra foraminal disc osteophyte complex superimpo sed on a disc bulge and endplate osteophytosis results in severe bilateral foraminal stenosis and eff acement of the right lateral recess at this level. 2. Laminectomy changes and noninstrumented fusion at L3-S1. 3. Multilevel degenerative change throughout the remainder of the lower thoracic and lumbar spine, de scribed in detail above. This is associated with moderate to severe right and severe left foraminal s tenosis at T10-T11, mild bilateral foraminal stenosis at T11-T12, moderate bilateral foraminal and mi nimal central canal stenosis and effacement of the right lateral recess at T12-L1, severe right and m oderate left foraminal and mild central canal stenosis with effacement of the right lateral recess at L1-L2, mild left foraminal stenosis at L3-L4 and mild bilateral foraminal stenosis at L4-L5. 4. Spinal stimulator leads extending cephalad beyond the [id number]-idya. 5. 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 Electronically signed by: Maria De Jesus Sam MD (11/19/2020 11:52 AM) [id number]
== END | disposition home or self-care (01) ==
LOC: RAD 11:30
PROVIDERS: ATTEND Neurological Surgery
DX: M54.5 Low back pain (principal); M79.605 Pain in left leg; M79.604 Pain in right leg; M48.061 Spinal stenosis, lumbar region without neurogenic claudication; I10 Essential (primary) hypertension; E78.00 Pure hypercholesterolemia, unspecified; K21.9 Gastro-esophageal reflux disease without esophagitis; M19.90 Unspecified osteoarthritis, unspecified site; E66.9 Obesity, unspecified; Z79.82 Long term (current) use of aspirin; Z79.899 Other long term (current) drug therapy; Z87.891 Personal history of nicotine dependence; Z98.890 Other specified postprocedural states; Z88.8 Allergy status to other drugs, medicaments and biological substances
CPT/HCPCS: 62304; 72132; J3490; Q9965

== ENCOUNTER → 2021-01-01 | Outpatient (CLI) | payer MEDICARE ==
[2020-11-19 10:10] VITALS: BP 127/56
[~2021-01-01] MED LIST changes: +AMIO100T PO; +AMOX875T PO; -CONTRAST GIVEN. MC PRN; -IOHEXOL 180 MG/ML 10 ML VIAL. IT ONE; -LIDOCAINE 1% Multi-Dose 20 ML VIAL. INJ ONE; +OXYC1TAB15 PO; -iron; +iron PO; +vitamin d PO
[2021-01-01 10:48] LABS: BASO % 0 % (0-3); EOS # 0.3 x10^3/uL (0.0-0.7); EOS % 2 % (0-3); HEMATOCRIT 35.7 % (39.0-53.0); HEMOGLOBIN 11.7 g/dL (13.0-17.5); LYMPH # 4.1 x10^3/uL (1.0-4.8); LYMPH % 31 % (24-48); MEAN CORPUSCULAR HEMOGLOBIN 29 pg (25-35); MEAN CORPUSCULAR HGB CONC 33 g/dL (31-37); MEAN CORPUSCULAR VOLUME 88 fL (79-100); MONO # 1.4 x10^3/uL (0.0-1.1); MONO % 10 % (0-9); NEUT # 7.5 x10^3/uL (1.8-7.7); NEUT % 57 % (31-73); PLATELET COUNT 214 x10^3/uL (140-400); RED BLOOD COUNT 4.05 x10^6/uL (4.30-5.70); RED CELL DISTRIBUTION WIDTH 15.1 % (11.5-14.5); WHITE BLOOD COUNT 13.3 x10^3/uL (4.0-11.0)
[2021-01-01 11:01] LABS: ALBUMIN 3.5 g/dL (3.4-5.0); ALBUMIN/GLOBULIN RATIO 1.1 (1.0-1.7); CALCIUM 9.2 mg/dL (8.5-10.1); CREATININE 2.2 mg/dL (0.7-1.3); GFR 29.7; POTASSIUM 4.3 mmol/L (3.5-5.1); TOTAL BILIRUBIN 0.8 mg/dL (0.2-1.0); TOTAL PROTEIN 6.8 g/dL (6.4-8.2)
--- NOTE | 2021-01-01 12:00 | EKG ---
[facility] [address] [place] [address] Test Date: 2021-01-01 Test Time: 11:20:35 Pat Name: KALYAN RAMOS Department: Room: Gender: M [employer]: : 1950 Requested By: VASQUEZ CORTEZ Order Number: [id number] Reading MD: Sony Zhang Measurements Intervals [place] Rate: 63 P: 35 MD: 206 QRS: 28 QRSD: 112 T: 25 QT: 414 QTc: 427 Interpretive Statements SINUS RHYTHM NORMAL ECG RI6.02 Compared to ECG 06/22/2012 19:33:25 No significant changes Electronically Signed On 01-01-2021 14:53:45 CDT by Sony Zhang
== END ==
LOC: SURGPAT 10:10
PROVIDERS: ATTEND Neurological Surgery
DX: Z01.818 Encounter for other preprocedural examination (principal); T85.192D Other mechanical complication of implanted electronic neurostimulator of spinal cord electrode (lead), subsequent encounter; R94.31 Abnormal electrocardiogram [ECG] [EKG]
CPT/HCPCS: 80053; 85025; 87641; 93005

== ENCOUNTER 2021-01-03 06:31 | Day surgery (SDC) | payer MEDICARE ==
[2021-01-01 10:49] VITALS: BP 173/72
--- NOTE | 2021-01-02 14:39 | PREOP HP ---
DATE OF SERVICE: 01/03/2021 PREOPERATIVE HISTORY AND PHYSICAL HISTORY OF PRESENT ILLNESS: The patient is a pleasant 73-year-old man who is having difficulty with back pain along with numbness in both his legs, below his knees. He says on occasion his entire left leg can be numb. The principal issue is back pain. Walking and standing increases his back pain. Sitting helps him. He is not taking any pain medication. He does have a spinal cord stimulator in place, which he says is not working. CURRENT MEDICATIONS: Aspirin, vitamin D, potassium, hydrochlorothiazide, losartan, atorvastatin, fish oil, amlodipine, Coreg, omeprazole, furosemide, spironolactone, acyclovir. PAST MEDICAL HISTORY: Arthritis, DVT, leukemia, hypertension, MRSA infection, SC. PAST SURGICAL HISTORY: Multiple lumbar surgeries, left knee surgery, rotator cuff repair, cervical surgery in 1997 as well as in 1998, lumbar microdiskectomy at L1-2 in 03/2015, posterior cervical decompression C4-5 left with instrumentation and fusion in 03/2016. FAMILY HISTORY: Cancer, diabetes, coronary artery disease and hypertension. SOCIAL HISTORY: , nonsmoker. Has 2 alcoholic beverages per day. ALLERGIES: ADHESIVE PAPER TAPE. REVIEW OF SYSTEMS: A 12-point review of systems was performed and is noncontributory, except that mentioned above. PHYSICAL EXAMINATION: GENERAL: Alert, pleasant, in no acute distress. HEENT: Head is normocephalic, atraumatic. SKIN: Warm and dry, well-healed lumbar incision. MUSCULOSKELETAL: Lumbar paraspinal muscle bulk is normal, restricted range of motion of the lumbar spine, qwpj-[id number] tenderness of the lower lumbar spine with palpation, normal range of motion of the lower extremities bilaterally. EXTREMITIES: No clubbing, cyanosis or edema. NEUROLOGIC: Alert and oriented x3. Strength is 5/5 in the lower extremities, sensory intact to light touch in the lower extremities, reflexes were symmetric and present in the lower extremities, negative straight leg raising bilaterally, normal gait. IMAGING: I reviewed the lumbar myelogram. On that study, there is left posterior instrumentation at L5-S1. There is no lucency to suggest loosening. There are diskectomy and laminectomy changes, which extends from L3-S1. There is a 2 mm anterolisthesis of L5 on S1. There is mild levoscoliosis, centered at L2. There are moderately severe degenerative changes throughout the lumbar and thoracic spine. There is foraminal stenosis present at T10-11. There is severe right and moderate left foraminal narrowing at L1-2. There is a spinal cord stimulator in place. There is right greater than left SI joint osteoarthritis. ASSESSMENT AND PLAN: Unfortunately, I did not see a problem with his lumbar spine, which I felt could benefit with surgery. He would strongly like to have his spinal cord stimulator removed, which is nonfunctioning. We will make those arrangements for him. BRIANNA/MAU DR: Dale TID: [id number]
[~2021-01-03] VITALS: Ht 185.4 cm; Wt 111.0 kg
[~2021-01-03 06:31] MED LIST changes: +HYDROmorphone 2 MG/ML VIAL IVP PRN; +IV RINGERS,LACTATED 1000ML 1,000 ML IV SCH; +MORPHINE SULFATE 2 MG/ML VIAL. IVP PRN; -OXYC1TAB15 PO; +PROCHLORPERAZINE 10 MG/2 ML VIAL. IVP PRN; +fentaNYL PF VIAL 100 MCG/2 ML VIAL IVP PRN
[2021-01-03] MEDS ORDERED: GELATIN SPONGE SIZE 100. ONE (06:41)
[2021-01-03] MEDS ORDERED: KETOROLAC 60 MG/2 ML VIAL. ONE (06:41)
[2021-01-03] MEDS ORDERED: BUPIVACAINE-EPI 0.5%-1:200000 MPF 30 ML VIAL. ONE (06:41)
[2021-01-03] MEDS ORDERED: THROMBIN TOPICAL 20,000 UNIT SPRAY.SYRN KIT TP ONE (06:41)
[2021-01-03 07:10] VITALS: BP 144/66
[2021-01-03] MEDS ORDERED: fentaNYL PF VIAL 100 MCG/2 ML VIAL ONE (07:53)
[2021-01-03] MEDS ORDERED: LIDOCAINE 2% PF 5 ML VIAL. ONE (07:54)
[2021-01-03] MEDS ORDERED: ROCURONIUM 50 MG/5 ML VIAL. ONE (07:54)
[2021-01-03] MEDS ORDERED: REMIFENTANIL 1 MG VIAL. IV ONE (07:54)
[2021-01-03] MEDS ORDERED: DEXAMETHASONE SOD PHOS 4 MG/ML VIAL ONE (07:54)
[2021-01-03] MEDS ORDERED: PROPOFOL 10 MG/ML (20ML) VIAL. IV ONE (07:54)
[2021-01-03] MEDS ORDERED: ONDANSETRON PF 4 MG/2 ML VIAL. ONE (07:54)
[2021-01-03] MEDS ORDERED: PROPOFOL 50 ML IV ONE (07:57)
[2021-01-03] MEDS ORDERED: SUCCINYLCHOLINE 200 MG/10 ML VIAL. ONE (09:05)
[2021-01-03] MEDS ORDERED: NEOSTIGMINE METHYLSULFATE 5 MG/5 ML SYRINGE. ONE (09:51)
[2021-01-03 11:20] VITALS: BP 146/75
[2021-01-03] MEDS ORDERED: OXYC1TAB15 PO (11:31)
[2021-01-03] MEDS ORDERED: DOCU-109 PO (11:31)
--- NOTE | 2021-01-03 11:32 | DISCH ---
DISCHARGE INSTRUCTIONS Condition on Discharge Condition on Discharge: Stable Activity After Discharge Activity Instructions for Disc: Activity as tolerated, Avoid exertion Other activity instructions: no driving for a week Bathing Instructions: Shower-keep dressing dry, No Tub Bath until see Lifting Instructions after Dis: No heavy lifting, No pulling or pushing, Do not lift >10 pounds Exercise Instruction after Dis: Exercise per therapy Driving Instructions after Dis: No driving for 2 weeks Weight Bearing Status after Di: No restrictions Diet after Discharge Diet after Discharge: Regular Additional Diet Restrictions: resume home diet Diet Texture: Regular Liquid Texture: Thin Liquid Swallowing Supervision: None needed Wound Incision Care Wound/Incision Care: Ice to area for comfort Other wound/incision instructi: may remove dressing in 48 hours if dry, no soaking Wound Care Equipment: Dressings Contacting the after DC Call your doctor for: Concerns you may have Follow-Up Follow up with: Dr. Cortez's nurse in 2 weeks [phone] Treatment/Equipment after DC Adaptive Equipment Issued: None VASQUEZ CORTEZ MD Jan 03, 2021 11:32
[2021-01-03] MEDS ORDERED: oxyCODONE/APAP 5/325 1 TAB TABLET PO ONE ×2 (11:45)
--- NOTE | 2021-01-03 12:57 | OP ---
DATE OF SURGERY: 01/03/2021 PREOPERATIVE DIAGNOSIS: Nonfunctioning spinal cord stimulator. POSTOPERATIVE DIAGNOSIS: Nonfunctioning spinal cord stimulator. OPERATION PERFORMED: Removal of spinal cord stimulator. SURGEON: Jimmie Victoria M.D. OPERATIVE INDICATIONS: The patient about 2 years ago had a spinal cord stimulator placed, which is nonfunctioning and he has discomfort by the battery pack and as well he is upset that he is unable to have MRI scans because of it. He strongly wishes it to be removed and that is nonfunctioning. I explained the risks and the technique and he understood and wished to go ahead. DESCRIPTION OF PROCEDURE: Following general endotracheal anesthesia, the patient was positioned prone on the Gene table. Lumbar region was prepped and draped in standard fashion. WILBER hose and AV impulse boots were applied for DVT prophylaxis. The microscope was draped, fluoroscopy was draped and brought into the field. Monitoring was established. Ancef 2 grams given less than one hour prior to initiation of the surgery. Using fluoroscopic guidance, an incision was made over the battery pack. I dissected the skin, subcutaneous tissue and I opened to expose the battery pack. I gently worked and was able to free up the battery pack and removed it. The wires were then densely scarred into the pouch and I began to free the wires up, which were looped. Removing the scar, gradually I was able to free the wires. I then gently began to remove one lead, which did have a moderate amount of resistance, but I was able to remove this without having to resort in making a second incision and likewise a second lead was gently pulled back and removed. I irrigated copiously it. Then I excoriated the inner aspect of the pouch and then I irrigated it again and I closed the wound with absorbable suture and the skin was closed with skin ray. I felt the surgery went very well. [facility] [place]: Jasmine TID: [id number] ADOLFO
[2021-01-03] MEDS ORDERED: FUROSEMIDE 20 MG/2 ML VIAL. ONE (14:28)
[2021-01-03] MEDS ORDERED: FUROSEMIDE 20 MG/2 ML VIAL. IVP ONE (14:30)
== END 2021-01-03 15:24 | disposition home or self-care (01) ==
LOC: SURG 06:31
PROVIDERS: ATTEND Neurological Surgery
DX: M54.5 Low back pain (principal); T85.192D Other mechanical complication of implanted electronic neurostimulator of spinal cord electrode (lead), subsequent encounter; I10 Essential (primary) hypertension; E78.00 Pure hypercholesterolemia, unspecified; K21.9 Gastro-esophageal reflux disease without esophagitis; E66.9 Obesity, unspecified; M19.90 Unspecified osteoarthritis, unspecified site; G47.30 Sleep apnea, unspecified; Z79.899 Other long term (current) drug therapy; Z98.890 Other specified postprocedural states; Z79.82 Long term (current) use of aspirin; Z87.891 Personal history of nicotine dependence; Z72.89 Other problems related to lifestyle; Z88.8 Allergy status to other drugs, medicaments and biological substances; Z82.49 Family history of ischemic heart disease and other diseases of the circulatory system; Z83.3 Family history of diabetes mellitus; X58.XXXD Exposure to other specified factors, subsequent encounter
CPT/HCPCS: 63662; A4364; A4930; A6254; A6258; J0330; J0690; J1100; J1885; J1940; J2405; J2704; J2710; J3010; J3490; 76000